=== PATIENT | male | born 1980 | race Caucasian/White ===

== ENCOUNTER 2016-12-24 20:42 | Emergency (ER) | payer BC ==
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
== END 2016-12-24 22:35 | disposition home or self-care (01) ==
LOC: CED 20:42
DX: S30.0XXA Contusion of lower back and pelvis, initial encounter (principal); S80.811A Abrasion, right lower leg, initial encounter; Z23 Encounter for immunization; V49.40XA Driver injured in collision with unspecified motor vehicles in traffic accident, initial encounter; Y92.488 Other paved roadways as the place of occurrence of the external cause
CPT/HCPCS: 72100; 73562; 73590; 73610; 90471; 90715; 96372; 99284; J1885